=== PATIENT | male | born 1965 | race Caucasian/White ===

== ENCOUNTER → 2016-08-29 | Day surgery (SDC) | payer OTHER ==
[2016-08-29 08:42] LABS: HCT 48.8 % (42.0-52.0); HGB 16.9 g/dl (13.2-18.0); MCH 31.7 pg (25.0-31.0); MCHC 34.6 g/dL (32.0-36.0); MCV 91.6 fL (78.0-100.0); MPV 10.7 fL (6.0-9.5); RBC 5.33 M/uL (4.70-6.00); RDW 11.9 % (11.5-14.0); WBC 12.4 K/uL (4.0-10.5)
[2016-08-29 09:07] LABS: ALBUMIN 4.8 g/dL (3.5-5.0); BILIRUBIN - TOTAL 1.3 mg/dL (0.1-1.0); CREATININE 0.8 mg/dL (0.7-1.2); GLOBULIN (CALCULATION) 2.9 g/dL (2.2-4.2); POTASSIUM 4.1 mmol/L (3.5-5.1); TOTAL PROTEIN 7.7 g/dL (6.4-8.3)
== END | disposition home or self-care (01) ==
LOC: FAS 08:24
PROVIDERS: Surgery
DX: Z12.11 Encounter for screening for malignant neoplasm of colon (principal); K64.4 Residual hemorrhoidal skin tags; Z98.890 Other specified postprocedural states
CPT/HCPCS: 36415; 80053; J2704

== ENCOUNTER 2021-09-08 13:38 | Emergency (ER) | payer OTHER ==
[~2021-09-08 13:38] MED LIST: CYCLOBENZAPRINE10 MG PO; HYDROCODON-ACE1 EAC2 PO; MEDROL 4MG DOSEP4 MG PO; NORCO 5-325 TA1 EACH PO; PERCOCET 7.5/321 TAB PO; ROBAXIN750 MG PO; ZANTAC150 MG PO
[2021-09-08] MEDS ORDERED: LIDODERM PATCH 51 EA TD (17:18)
== END 2021-09-08 17:45 | disposition home or self-care (01) ==
LOC: FER 13:38
DX: G89.29 Other chronic pain (principal); M54.50 Low back pain, unspecified
CPT/HCPCS: J1170

== ENCOUNTER 2021-10-02 19:56 | Emergency (ER) | payer OTHER ==
[~2021-10-02 19:56] MED LIST changes: +LIDODERM PATCH 51 EA TD; +OXYCODON-ACETA1 EAC1 PO
[2021-10-02 22:02] LABS: BASOPHIL 0.5 % (0-2); EOSINOPHIL 0.6 % (0-5); HCT 47.8 % (42.0-52.0); HGB 16.9 g/dl (13.2-18.0); LYMPHOCYTE 21.9 % (15-48); MCH 32.4 pg (25.0-31.0); MCHC 35.4 g/dL (32.0-36.0); MCV 91.7 fL (78.0-100.0); MONOCYTE 7.3 % (0-12); MPV 9.4 fL (6.0-9.5); NEUTROPHIL 69.4 % (41-80); NRBC 0; PLT 262 K/uL (150-400); RBC 5.21 M/uL (4.70-6.00); RDW 11.4 % (11.5-14.0); WBC 10.3 K/uL (4.0-10.5)
[2021-10-02 22:17] LABS: ALBUMIN 4.1 g/dL (3.4-5.0); BILIRUBIN - TOTAL 0.9 mg/dL (0.2-1.0); BUN/CREAT RATIO (CALC) 13.6 RATIO; CREATININE 0.81 mg/dL (0.67-1.17); GLOBULIN (CALCULATION) 3.7 g/dL; POTASSIUM 3.8 mmol/L (3.5-5.1); TOTAL PROTEIN 7.8 g/dL (6.4-8.2)
[2021-10-02] MEDS ORDERED: ONDANSETRON ODT4 MG PO (22:40)
[2021-10-02] MEDS ORDERED: PHENERGAN25 M1 PO (22:40)
== END 2021-10-02 22:50 | disposition home or self-care (01) ==
LOC: FER 19:56
PROVIDERS: Emergency Medicine; Nurse Practitioner Family
DX: R11.2 Nausea with vomiting, unspecified (principal); I10 Essential (primary) hypertension
CPT/HCPCS: 36415; 80053; 83690; 85025; J1885; J2405; J7030; Q0169